=== PATIENT | female | born 1985 | race Caucasian/White ===

== ENCOUNTER 2025-10-27 23:36 | Inpatient (IN) | payer MEDICAID ==
[~2025-10-27] VITALS: Ht 157.5 cm; Wt 86.3 kg
[2025-10-28 00:05] VITALS: BP 110/64; TEMP 98.5; O2SAT 96
[2025-10-28] MEDS ORDERED: ONDANSETRON 4 MG/2 ML VIAL IV PRN (02:45)
[2025-10-28] MEDS: PANTOPRAZOLE SODIUM 40 MG VIAL IV SCH ×2 (03:39→20:05)
[2025-10-28] MEDS: IV NS 1000 ML 1,000 ML IV PRN (03:39)
[2025-10-28 06:05] VITALS: BP 119/71; TEMP 98.6; O2SAT 97
[2025-10-28] MEDS: ACETAMINOPHEN 325 MG TABLET PO PRN (08:53)
[2025-10-28] MEDS ORDERED: IBUP-2314 PO (10:02)
[2025-10-28] MEDS ORDERED: ACET-2605 PO (10:04)
[2025-10-28 10:58] LABS: PLATELET COUNT (AUTO) 242 K/uL (179-408); RED BLOOD CELL COUNT(AUTO) 4.25 MIL/uL (3.63-4.92); RED CELL DISTRIBUTION WIDTH 12.2 % (12.3-17.7); WHITE BLOOD COUNT (AUTO) 7.7 K/uL (3.8-11.8)
[2025-10-28 11:09] LABS: CREATININE 0.5 mg/dL (0.6-1.3); SODIUM SERUM 138 mmol/L (136-145); UREA NITROGEN, BLOOD 6 mg/dL (7-18)
[2025-10-28 11:14] LABS: ASPARTATE AMINOTRANSFERASE 23 U/L (15-37); TOTAL PROTEIN, SERUM 6.6 g/dL (6.4-8.2)
[2025-10-28 12:00] VITALS: BP 111/60; TEMP 99.5; O2SAT 97
[2025-10-28] MEDS: CEFEPIME HCL 2 GM in IV DEXTROSE 5% 100 ML IV SCH (14:27)
[2025-10-28 16:29] VITALS: BP 120/77; TEMP 98.9; O2SAT 95
[2025-10-28] MEDS: MORPHINE SULFATE 2 MG/1 ML DISP.SYRIN IVP PRN (16:33)
[2025-10-28 19:00] VITALS: BP 116/77; TEMP 97.9; O2SAT 94
[2025-10-29 04:00] VITALS: BP 119/78; TEMP 98.3; O2SAT 95
[2025-10-29 06:49] LABS: PLATELET COUNT (AUTO) 251 K/uL (179-408); RED BLOOD CELL COUNT(AUTO) 4.27 MIL/uL (3.63-4.92); RED CELL DISTRIBUTION WIDTH 12.3 % (12.3-17.7); WHITE BLOOD COUNT (AUTO) 7.0 K/uL (3.8-11.8)
[2025-10-29 07:22] LABS: CREATININE 0.5 mg/dL (0.6-1.3); SODIUM SERUM 140 mmol/L (136-145); UREA NITROGEN, BLOOD 5 mg/dL (7-18)
[2025-10-29 11:45] VITALS: BP 138/88; TEMP 98.1; O2SAT 99
[2025-10-29 18:02] VITALS: BP 115/55; TEMP 97.8; O2SAT 97
[2025-10-29 19:40] VITALS: BP 101/58; TEMP 98.2; O2SAT 97
[2025-10-30 06:15] VITALS: BP 101/60; TEMP 99; O2SAT 94
[2025-10-30 11:56] VITALS: BP 121/77; TEMP 98.5; O2SAT 100
[2025-10-30] MEDS ORDERED: MIDAZOLAM HCL 2 MG/2 ML VIAL ONE (13:00)
[2025-10-30] MEDS ORDERED: FENTANYL CITRATE 100 MCG/2 ML AMPUL ONE (13:00)
[2025-10-30] MEDS ORDERED: GLYCOPYRROLATE 0.2 MG/ML VIAL ONE (13:30)
[2025-10-30] MEDS ORDERED: VECURONIUM BROMIDE 10 MG VIAL ONE (13:30)
[2025-10-30] MEDS ORDERED: KETOROLAC TROMETHAMINE 30 MG INJ ONE (13:30)
[2025-10-30] MEDS ORDERED: CEFAZOLIN 1 G VIAL ONE (13:30)
[2025-10-30] MEDS ORDERED: DEXAMETHASONE SOD PHOSPHATE 4 MG INJ ONE (13:30)
[2025-10-30] MEDS ORDERED: LIDOCAINE-MPF 2% 5 ML VIAL ONE (13:30)
[2025-10-30] MEDS ORDERED: PROPOFOL 200 MG/20 ML BOTTLE ONE (13:30)
[2025-10-30] MEDS ORDERED: ONDANSETRON 4 MG/2 ML VIAL ONE ×2 (13:30→15:57)
[2025-10-30] MEDS ORDERED: SUCCINYLCHOLINE CHLORIDE 200 MG/10 ML VIAL ONE (13:30)
[2025-10-30] MEDS ORDERED: BUPIVACAINE/EPI PF 0.25% 10 ML VIAL IJ ONE (13:50)
[2025-10-30] MEDS ORDERED: LIDOCAINE HCL 1% 20 ML VIAL ONE (13:51)
[2025-10-30] MEDS ORDERED: HYDROMORPHONE 1 MG/1 ML DISP.SYRIN ONE ×3 (15:09→15:51)
[2025-10-30] MEDS ORDERED: HYDROMORPHONE 1 MG/1 ML DISP.SYRIN IV PRN (15:30)
[2025-10-30] MEDS: HYDROMORPHONE 1 MG/1 ML DISP.SYRIN IV PRN (16:03)
[2025-10-30] MEDS: ONDANSETRON 4 MG/2 ML VIAL IV PRN (16:05)
[2025-10-30 16:27] VITALS: BP 174/114
[2025-10-30 19:00] VITALS: BP 132/81; TEMP 97.8; O2SAT 96
[2025-10-31 07:11] LABS: PLATELET COUNT (AUTO) 349 K/uL (179-408); RED BLOOD CELL COUNT(AUTO) 4.61 MIL/uL (3.63-4.92); RED CELL DISTRIBUTION WIDTH 12.2 % (12.3-17.7); WHITE BLOOD COUNT (AUTO) 12.2 K/uL (3.8-11.8)
[2025-10-31 07:40] LABS: CREATININE 0.5 mg/dL (0.6-1.3); SODIUM SERUM 139 mmol/L (136-145); UREA NITROGEN, BLOOD 2 mg/dL (7-18)
[2025-10-31] MEDS: HYDROMORPHONE 1 MG/1 ML DISP.SYRIN IV PRN (08:49)
[2025-10-31 12:06] VITALS: BP 138/78; TEMP 97.5; O2SAT 98
[2025-10-31 15:30] VITALS: BP 114/69; TEMP 97.7; O2SAT 97
[2025-10-31 19:25] VITALS: BP 113/68; TEMP 99.4; O2SAT 94
[2025-11-01 06:25] VITALS: BP 134/83; TEMP 99.3; O2SAT 92
[2025-11-01 08:40] LABS: PLATELET COUNT (AUTO) 342 K/uL (179-408); RED BLOOD CELL COUNT(AUTO) 4.52 MIL/uL (3.63-4.92); RED CELL DISTRIBUTION WIDTH 12.6 % (12.3-17.7); WHITE BLOOD COUNT (AUTO) 8.9 K/uL (3.8-11.8)
[2025-11-01 11:04] VITALS: BP 110/65; TEMP 98.9; O2SAT 96
[2025-11-01 14:48] VITALS: BP 119/64; TEMP 98.7; O2SAT 100
[2025-11-01 19:30] VITALS: BP 116/74; TEMP 99.2; O2SAT 93
[2025-11-02 05:44] VITALS: BP 135/81; TEMP 98.8; O2SAT 96
[2025-11-02] MEDS ORDERED: HYDR-3972 PO (09:51)
[2025-11-02] MEDS ORDERED: AMOX-319 PO (09:51)
[2025-11-02 11:27] VITALS: BP 114/65; TEMP 97.7; O2SAT 96
[2025-11-02] MEDS: CEFEPIME HCL 2 GM in IV DEXTROSE 5% 100 ML IV SCH (13:00)
[2025-11-02 15:36] VITALS: BP 117/61; TEMP 99; O2SAT 97
[2025-11-02 19:00] VITALS: BP 141/78; TEMP 98.2; O2SAT 98
[2025-11-03 04:00] VITALS: BP 132/81; TEMP 98.4; O2SAT 94
[2025-11-03 11:34] VITALS: BP 117/64; TEMP 98; O2SAT 95
== END 2025-11-03 14:00 | disposition home or self-care (01) | DRG 263 ==
LOC: MEDSURG3 23:57
PROVIDERS: ADMIT Nurse Practitioner Acute Care; ATTEND Internal Medicine
PROC: 0FT44ZZ Resection of Gallbladder, Percutaneous Endoscopic Approach (ICD-10-PCS; principal; 2025-10-30 13:00)
PROC: 0FB04ZX Excision of Liver, Percutaneous Endoscopic Approach, Diagnostic (ICD-10-PCS; principal; 2025-10-30 13:00)
PROC: 3E0T3BZ Introduction of Anesthetic Agent into Peripheral Nerves and Plexi, Percutaneous Approach (ICD-10-PCS; principal; 2025-10-30 13:00)
DX: K80.63 Calculus of gallbladder and bile duct with acute cholecystitis with obstruction (principal); E66.01 Morbid (severe) obesity due to excess calories; K76.0 Fatty (change of) liver, not elsewhere classified; K82.8 Other specified diseases of gallbladder; K64.9 Unspecified hemorrhoids; Z68.35 Body mass index [BMI] 35.0-35.9, adult; K76.9 Liver disease, unspecified
CPT/HCPCS: 36415; 76705; 78445; 83690; 83735; 84100; 85018; 85025; 85610; A4663; A9537; G0378; J0330; J0690; J0692; J1100; J1171; J1885; J2250; J2270; J2405; J2470; J3010; J3490; J7040; L8699